=== PATIENT | female | born 1935 | race Caucasian/White ===

== ENCOUNTER 2016-08-31 13:31 | Emergency (ER) | payer MEDICARE, OTHER ==
[~2016-08-31] VITALS: Ht 165.1 cm; Wt 70.3 kg
--- NOTE | 2016-08-31 14:06 | NUR ---
DR COHEN AT THE BEDSIDE FOR EVAL AND EXAM.
[2016-08-31] MEDS ORDERED: DOCU-106 PO (14:31)
[2016-08-31] MEDS ORDERED: ACET325T80 PO (14:31)
[2016-08-31] MEDS ORDERED: MEMA10TA PO (14:31)
[2016-08-31] MEDS ORDERED: MIRT7.5T10 PO (14:31)
[2016-08-31] MEDS ORDERED: DIPH28.44 TP (14:31)
[2016-08-31] MEDS ORDERED: BISA10SU8 RC (14:31)
[2016-08-31] MEDS ORDERED: DIVA125T3 PO (14:31)
[2016-08-31] MEDS ORDERED: DONE10TA4 PO (14:31)
[2016-08-31] MEDS ORDERED: HYDR28CR28 TP (14:31)
[2016-08-31] MEDS ORDERED: ATOR10TA PO (14:31)
[2016-08-31] MEDS ORDERED: MAGN400O4 PO (14:31)
[2016-08-31] MEDS ORDERED: NA P133E4 RC (14:31)
[2016-08-31] MEDS ORDERED: LISI-603 PO (14:31)
--- NOTE | 2016-08-31 15:11 | NUR ---
CALLED EMR FOR TX. PT IS WALKING IN THE ROOM, NO ACUTE DISTRESS NOTED.
--- NOTE | 2016-08-31 15:20 | NUR ---
PT'S SON AT THE BEDSIDE, STATES HE WILL DRIVE PT BACK TO [facility]).
--- NOTE | 2016-08-31 15:41 | NUR ---
Patient discharged in stable conditon. Written and verbal after care instructions given to pt and pt's son. verbalizes understanding of instruction, pt left out of ER accompained by son. EMR called to call transfer.
[2016-08-31 15:44] VITALS: BP 122/76
== END 2016-08-31 15:45 | disposition home or self-care (01) ==
LOC: ER 13:34
DX: S90.812A Abrasion, left foot, initial encounter (principal); E78.00 Pure hypercholesterolemia, unspecified; I10 Essential (primary) hypertension; F03.90 Unspecified dementia, unspecified severity, without behavioral disturbance, psychotic disturbance, mood disturbance, and anxiety; Z88.2 Allergy status to sulfonamides; Z88.8 Allergy status to other drugs, medicaments and biological substances; Z88.0 Allergy status to penicillin; W18.30XA Fall on same level, unspecified, initial encounter; Y93.89 Activity, other specified; Y99.8 Other external cause status; Y92.89 Other specified places as the place of occurrence of the external cause
CPT/HCPCS: 73630; 99284; A4663

== ENCOUNTER 2016-11-25 19:15 | Inpatient (IN) | payer MEDICARE, OTHER ==
[~2016-11-25] VITALS: Ht 157.5 cm; Wt 54.4 kg
[~2016-11-25 19:15] MED LIST: ACET325T80 PO; ATOR10TA PO; BISA10SU8 RC; DIPH28.44 TP; DIVA125T3 PO; DOCU-106 PO; DONE10TA11 PO; HYDR28CR28 TP; LISI-603 PO; MAGN400O6 PO; MEMA10TA PO; MIRT7.5T10 PO; NA P133E4 RC
--- NOTE | 2016-11-25 19:52 | NUR ---
Spoke to [facility] who did not provide a current medication list, will be faxed to this ER.
[2016-11-25] MEDS ORDERED: IV NORMAL SALINE 500 ML BAG IV ONE ×2 (20:00→21:15)
[2016-11-25 20:09] LABS: BASOPHILS # (AUTO) 0.1 K/uL (0.0-8.0); BASOPHILS % (AUTO) 1.1 % (0.0-2.0); EOSINOPHILS # (AUTO) 0.2 K/uL (0.0-0.7); EOSINOPHILS % (AUTO) 2.4 % (0.0-7.0); HEMATOCRIT 41.4 % (37-47); HEMOGLOBIN 13.7 G/DL (12.0-16.0); LYMPHOCYTES # (AUTO) 2.9 K/UL (0.8-4.8); LYMPHOCYTES % (AUTO) 34.4 % (20.5-51.5); MEAN CORPUSCULAR HEMOGLOBIN 31.5 UUG (27.0-31.0); MEAN CORPUSCULAR HGB CONC 33 g/dL (32.0-37.0); MEAN CORPUSCULAR VOLUME 94.9 FL (81.0-99.0); MONOCYTES # (AUTO) 0.6 K/UL (0.1-1.30); NEUTROPHILS # (AUTO) 4.6 K/UL (1.8-8.9); NEUTROPHILS % (AUTO) 55.1 % (38.5-71.5); PLATELET COUNT (AUTO) 202 K/UL (150-450); RED BLOOD CELL COUNT(AUTO) 4.36 MIL/UL (4.2-5.4); WHITE BLOOD COUNT (AUTO) 8.4 K/UL (4.0-11.2)
[2016-11-25 20:16] LABS: CARBON DIOXIDE 33 mmol/L (21-32); CHLORIDE 103 mmol/L (98-107); CREATININE 1.1 mg/dL (0.6-1.3); GLUCOSE 120 mg/dL (74-106); POTASSIUM 3.1 mmol/L (3.5-5.1); UREA NITROGEN, BLOOD 35 mg/dL (7-18)
[2016-11-25 20:22] LABS: ALANINE AMINOTRANSFERASE 16 U/L (14-59); ALKALINE PHOSPHATASE 52 U/L (50-136); ASPARTATE AMINOTRANSFERASE 10 U/L (15-37); BILIRUBIN,DIRECT 0.1 mg/dL (0.0-0.2); BILIRUBIN,TOTAL 0.4 mg/dL (0.2-1.0); LIPASE 191 U/L (73-393)
[2016-11-25] MEDS ORDERED: POTASSIUM CHLORIDE 20 MEQ TAB.PRT.SR PO ONE (21:15)
--- NOTE | 2016-11-25 21:23 | NUR ---
Call placed to [facility] nephrology, Dr. Bryant will be paged.
[2016-11-25] MEDS ORDERED: POTASSIUM CHLORIDE 20 MEQ TAB.PRT.SR ONE (21:45)
--- NOTE | 2016-11-25 21:57 | NUR ---
Daughter in-law left contact information. [place]
--- NOTE | 2016-11-25 22:37 | NUR ---
ADMITTED PATIENT IN TELE UNIT UNDER DR. NICOLAS Gutierres BELONGING LIST DONE.
--- NOTE | 2016-11-25 22:37 | NUR ---
Pt. admitted to TELE, under care of Dr. Bryant Belongs List completed
[2016-11-25 22:40] VITALS: BP 111/54
[2016-11-25] MEDS: POTASSIUM CHLORIDE 20 MEQ in IV D5/ 0.9% NACL 1,000 ML IV PRN (23:53)
[2016-11-26] VITALS: BP 103/52
[2016-11-26 04:00] VITALS: BP 100/65
--- NOTE | 2016-11-26 05:49 | NUR ---
PATIENT SLEPT MOST OF THE NIGHT NO SOB NO CHEST PAIN, RYTHM IS SINUS BRADYCARDIA, NO COMPLAIN OF PAIN, KEPT CLEAN DRY AND COMFORTABLE, CONT TO MONITOR.
[2016-11-26] MEDS ORDERED: HYDROCORTISONE 1% CREAM 30 GM TUBE TP PRN (08:00)
[2016-11-26] MEDS ORDERED: ACETAMINOPHEN 325 MG TABLET PO PRN (08:00)
[2016-11-26] MEDS ORDERED: BISACODYL 10 MG SUPP.RECT RC PRN (08:00)
[2016-11-26] MEDS ORDERED: FLEET ENEMA 133 ML BOTTLE RC PRN (08:00)
[2016-11-26] MEDS ORDERED: MAGNESIUM HYDROXIDE 30 ML LIQUID UDC PO PRN (08:00)
[2016-11-26] MEDS ORDERED: diphenhydrAMINE/ZINC ACET CREAM 28 GM TUBE TP PRN (08:00)
[2016-11-26] MEDS ORDERED: DIVALPROEX 125 MG TABLET.DR PO SCH (09:00)
[2016-11-26] MEDS: DOCUSATE SODIUM 100 MG CAPSULE PO SCH (09:10)
[2016-11-26] MEDS: MEMANTINE HCL 10 MG TABLET PO SCH ×2 (09:10→16:40)
[2016-11-26] MEDS: DIVALPROEX 250 MG TABLET.DR PO SCH ×2 (09:10→16:40)
[2016-11-26] MEDS: LISINOPRIL 20 MG TABLET PO SCH (09:11)
[2016-11-26 09:30] LABS: BASOPHILS % (AUTO) 0.7 % (0.0-2.0); EOSINOPHILS # (AUTO) 0.3 K/uL (0.0-0.7); EOSINOPHILS % (AUTO) 4.3 % (0.0-7.0); HEMOGLOBIN 11.9 G/DL (12.0-16.0); LYMPHOCYTES # (AUTO) 2.8 K/UL (0.8-4.8); MEAN CORPUSCULAR HEMOGLOBIN 31.4 UUG (27.0-31.0); MEAN CORPUSCULAR HGB CONC 33 g/dL (32.0-37.0); MEAN CORPUSCULAR VOLUME 96.5 FL (81.0-99.0); MONOCYTES # (AUTO) 0.5 K/UL (0.1-1.30); MONOCYTES % (AUTO) 7.7 % (0.0-11.0); NEUTROPHILS # (AUTO) 2.7 K/UL (1.8-8.9); NEUTROPHILS % (AUTO) 43.3 % (38.5-71.5); PLATELET COUNT (AUTO) 169 K/UL (150-450); WHITE BLOOD COUNT (AUTO) 6.3 K/UL (4.0-11.2)
[2016-11-26 09:36] LABS: CARBON DIOXIDE 27 mmol/L (21-32); CHLORIDE 111 mmol/L (98-107); CREATININE 0.7 mg/dL (0.6-1.3); GLUCOSE 118 mg/dL (74-106); POTASSIUM 4.3 mmol/L (3.5-5.1); UREA NITROGEN, BLOOD 31 mg/dL (7-18)
[2016-11-26 09:47] LABS: HEMATOCRIT 36.4 % (37-47); RED BLOOD CELL COUNT(AUTO) 3.77 MIL/UL (4.2-5.4)
[2016-11-26 11:07] VITALS: BP 129/63
--- NOTE | 2016-11-26 13:09 | NUR ---
PATIENT SEEN AND EXAMINED BY DR RONALDO HINOJOSA WITH NEW ORDERS AND NOTED.ALERT TO SELF RESPONDS TO YES OR NO WHEN ENGAGED.UNABLE TO MAKE NEEDS KNOWN.REQUIRES MAX ASSIST FOR ALL ADL.REMAIN ON IVF ORDERED WITH IV BOARD IN PLACE TO HER RIGHT ARM TO SECURE THE SITE AND PREVENT FROM BEEPING.MADE COMFORTABLE WITH NO DISTRESS AT THIS TIME.
[2016-11-26] MEDS: MEGESTROL ACETATE 20 MG TABLET PO SCH ×2 (13:39→16:40)
[2016-11-26] MEDS: POTASSIUM CHLORIDE 20 MEQ in IV D5/ 0.9% NACL 1,000 ML IV PRN (15:02)
[2016-11-26 15:15] VITALS: BP 125/66
--- NOTE | 2016-11-26 17:00 | NUR ---
PATIENT IS MORE CONFUSED DISORIENTED SUN DOWNING SPIT OUT ALL HER MEDICATIONS UNABLE TO REDIRECT MADE COMFORTABLE.
--- NOTE | 2016-11-26 18:00 | NUR ---
CONTINUE TO BE CONFUSED DISORIENTED ATTEMPTS TO GET OUT OF BED REPOSITIONED MANY TIMES MADE COMFORTABLE ENDORSED.
--- NOTE | 2016-11-26 19:00 | NUR ---
RECEIVED PATIENT WITH RESTLESSNESS, ASSESSED FOR PAIN AND DISCOMFORT, ASSISTED PATIENT TO RESTROOM, URINATE MODERATE AMOUNT OF URINE, KEPT CLEAN AND DRY, NO SOB NO CHEST PAIN NOTED, NO COMPLAIN OF PAIN AT THIS TIME, CALL LIGHT WITHIN REACH.
[2016-11-26 19:55] VITALS: BP 153/73
[2016-11-26] MEDS: ATORVASTATIN 10 MG TABLET PO SCH (20:19)
[2016-11-26] MEDS: DONEPEZIL 10 MG TABLET PO SCH (20:19)
[2016-11-26] MEDS: MIRTAZAPINE 15 MG TABLET PO SCH (20:19)
[2016-11-26] MEDS: Z GUARD REMEDY PASTE 57 GM TUBE TOP SCH (20:20)
--- NOTE | 2016-11-26 21:00 | NUR ---
GIVEN PATIENT 2100 MEDICATIONS WITH HELP WITH THE RESTLESSNESS, PATIENT WENT TO SLEEP, KEPT CLEAN AND DRY, CALL LIGHT WITHIN REACH.
[2016-11-27] MEDS: POTASSIUM CHLORIDE 20 MEQ in IV D5/ 0.9% NACL 1,000 ML IV PRN ×2 (04:05→17:37)
[2016-11-27 04:13] VITALS: BP 119/97
--- NOTE | 2016-11-27 05:50 | NUR ---
PATIENT SLEPT MOST OF THE NIGHT, NO SOB NO CHEST PAIN, ASSISTED TO BATHROOM FOR BLADDER ELIMINATION, RENDERED MARILIN CARE, PATIENT HAS EPISODES OF CLIMB OOB, RISK FOR FALL, FREQUENT VISUAL CHECK DONE, BED ALARM WAS PUT ON. CONT TO MONITOR.
[2016-11-27] MEDS: MEGESTROL ACETATE 20 MG TABLET PO SCH ×2 (09:14→17:35)
[2016-11-27] MEDS: MEMANTINE HCL 10 MG TABLET PO SCH ×2 (09:14→17:35)
[2016-11-27] MEDS: DIVALPROEX 250 MG TABLET.DR PO SCH ×2 (09:15→17:35)
[2016-11-27] MEDS: DOCUSATE SODIUM 100 MG CAPSULE PO SCH (09:15)
[2016-11-27] MEDS: Z GUARD REMEDY PASTE 57 GM TUBE TOP SCH (09:16)
[2016-11-27] MEDS: LISINOPRIL 20 MG TABLET PO SCH (09:16)
[2016-11-27 11:42] VITALS: BP 140/65
[2016-11-27 16:10] VITALS: BP 134/99
--- NOTE | 2016-11-27 18:54 | NUR ---
PER OSITO DUST COLLECTOR ATTENDANT "PT HAS NRSA OF [facility]", ADVICED NURSE LAB REP TO BRING THE CART FOR CONTACT ISOLATION
--- NOTE | 2016-11-27 19:00 | NUR ---
RECEIVED IN BED NO SOB NO CHEST PAIN, ASSISTED WITH TOILETING, KEPT CLEAN AND DRY, CALL LIGHT WITHIN REACH.
--- NOTE | 2016-11-27 19:07 | NUR ---
PT IS LAYING IN BED COMFORTABLY. NO S/S OF RESPIRATORY DISTRESS NOTED. NO PAIN NOTED. ALL SAFETY NEEDS ARE MET. IV INTACT/PATENT.
[2016-11-27 19:38] VITALS: BP 150/82
[2016-11-27] MEDS: MIRTAZAPINE 15 MG TABLET PO SCH (20:21)
[2016-11-27] MEDS: DONEPEZIL 10 MG TABLET PO SCH (20:23)
[2016-11-27] MEDS: ATORVASTATIN 10 MG TABLET PO SCH (20:23)
[2016-11-27] MEDS: MUPIROCIN 2% OINT 22 GM TUBE NS SCH (22:00)
[2016-11-28] MEDS: Z GUARD REMEDY PASTE 57 GM TUBE TOP SCH ×3 (02:01→20:13)
--- NOTE | 2016-11-28 05:01 | NUR ---
PATIENT SLEPT MOST OF THE NIGHT, NO SOB NO CHEST PAIN, ASSISTED TO COMMODE FOR BLADDER ELIMINATION, PATIENT PULLED OUT HER IV, WILL REINSERT IV, CONT TO MONITOR.
[2016-11-28 05:16] VITALS: BP 135/86
[2016-11-28] MEDS: MUPIROCIN 2% OINT 22 GM TUBE NS SCH ×2 (10:46→20:02)
[2016-11-28] MEDS: MEGESTROL ACETATE 20 MG TABLET PO SCH ×2 (10:46→17:00)
[2016-11-28] MEDS: DIVALPROEX 250 MG TABLET.DR PO SCH ×2 (10:46→17:00)
[2016-11-28] MEDS: DOCUSATE SODIUM 100 MG CAPSULE PO SCH (10:46)
[2016-11-28] MEDS: LISINOPRIL 20 MG TABLET PO SCH (10:47)
[2016-11-28] MEDS: MEMANTINE HCL 10 MG TABLET PO SCH ×2 (10:47→17:00)
[2016-11-28 11:42] VITALS: BP 145/77
[2016-11-28 15:51] VITALS: BP 118/79
--- NOTE | 2016-11-28 19:00 | NUR ---
RECEIVED IN BED, AWAKE, VERBALLY RESPONSIVE, NO SOB NO CHEST PAIN, NOTED, KEPT CLEAN AND DRY. NO S/S OF DISTRESS.
[2016-11-28] MEDS: DONEPEZIL 10 MG TABLET PO SCH (20:02)
[2016-11-28] MEDS: MIRTAZAPINE 15 MG TABLET PO SCH (20:02)
[2016-11-28] MEDS: ATORVASTATIN 10 MG TABLET PO SCH (20:02)
[2016-11-28 20:39] VITALS: BP 147/71
[2016-11-29] MEDS: POTASSIUM CHLORIDE 20 MEQ in IV D5/ 0.9% NACL 1,000 ML IV PRN ×2 (01:19→08:57)
[2016-11-29 04:00] VITALS: BP 121/84
--- NOTE | 2016-11-29 05:00 | NUR ---
PATIENT SLEPT MOST OF THE NIGHT, NO SOB NO CHEST PAIN NOTED, ASSISTED TO COMMODE FOR BLADDER ELIMINATION, NO COMPLAIN OF PAIN AT THIS TIME. KEPT CLEAN AND DRY.
[2016-11-29 06:46] LABS: THYROID STIMULATING HORMONE 1.695 mIU/mL (0.358-3.740)
[2016-11-29 06:52] LABS: BASOPHILS % (AUTO) 0.6 % (0.0-2.0); EOSINOPHILS # (AUTO) 0.2 K/uL (0.0-0.7); EOSINOPHILS % (AUTO) 3.6 % (0.0-7.0); HEMATOCRIT 36.3 % (37-47); HEMOGLOBIN 12.2 G/DL (12.0-16.0); LYMPHOCYTES % (AUTO) 49.9 % (20.5-51.5); MEAN CORPUSCULAR HEMOGLOBIN 31.6 UUG (27.0-31.0); MEAN CORPUSCULAR HGB CONC 34 g/dL (32.0-37.0); MEAN CORPUSCULAR VOLUME 94.5 FL (81.0-99.0); MONOCYTES # (AUTO) 0.4 K/UL (0.1-1.30); MONOCYTES % (AUTO) 7.3 % (0.0-11.0); NEUTROPHILS # (AUTO) 2.3 K/UL (1.8-8.9); NEUTROPHILS % (AUTO) 38.6 % (38.5-71.5); PLATELET COUNT (AUTO) 175 K/UL (150-450); RED BLOOD CELL COUNT(AUTO) 3.85 MIL/UL (4.2-5.4); WHITE BLOOD COUNT (AUTO) 5.9 K/UL (4.0-11.2)
[2016-11-29 06:54] LABS: ALANINE AMINOTRANSFERASE 15 U/L (14-59); ALKALINE PHOSPHATASE 50 U/L (50-136); ASPARTATE AMINOTRANSFERASE 14 U/L (15-37); BILIRUBIN,TOTAL 0.4 mg/dL (0.2-1.0); CARBON DIOXIDE 28 mmol/L (21-32); CHLORIDE 109 mmol/L (98-107); CREATININE 0.6 mg/dL (0.6-1.3); GLUCOSE 94 mg/dL (74-106); MAGNESIUM 1.8 mg/dL (1.8-2.4); PHOSPHOROUS 3.3 mg/dL (2.5-4.9); POTASSIUM 3.6 mmol/L (3.5-5.1); UREA NITROGEN, BLOOD 4 mg/dL (7-18)
--- NOTE | 2016-11-29 07:59 | NUR ---
Sleeping. IVF infusing. Bed alarm on
[2016-11-29] MEDS: DIVALPROEX 250 MG TABLET.DR PO SCH (08:34)
[2016-11-29] MEDS: MEGESTROL ACETATE 20 MG TABLET PO SCH (08:34)
[2016-11-29] MEDS: DOCUSATE SODIUM 100 MG CAPSULE PO SCH (08:34)
[2016-11-29] MEDS: MEMANTINE HCL 10 MG TABLET PO SCH (08:34)
[2016-11-29] MEDS: MUPIROCIN 2% OINT 22 GM TUBE NS SCH (08:34)
[2016-11-29] MEDS: LISINOPRIL 20 MG TABLET PO SCH (08:35)
[2016-11-29] MEDS: Z GUARD REMEDY PASTE 57 GM TUBE TOP SCH (08:35)
[2016-11-29 08:36] VITALS: BP 139/76
--- NOTE | 2016-11-29 09:00 | NUR ---
Assisted with meal, only ate small bites of meal but drank milk. Complaint with taking medications.
[2016-11-29 11:35] VITALS: BP 108/96
[2016-11-29] MEDS ORDERED: BOOST PLUS 237 ML LIQUID (VERY VANILLA) PO SCH (12:00)
--- NOTE | 2016-11-29 12:30 | NUR ---
Family at bedside, assisted with meals but still with poor intake. Boost Plus added to meal
--- NOTE | 2016-11-29 13:30 | NUR ---
With BM, got out of bed. Assisted to commode then back to bed. Bed alarm on
[2016-11-29 15:39] VITALS: BP 116/52
[2016-11-29] MEDS ORDERED: MUPI22OI2 NS (15:39)
[2016-11-29] MEDS ORDERED: MENT71OI TOP (15:39)
[2016-11-29] MEDS ORDERED: LACT-15 PO (15:39)
[2016-11-29] MEDS ORDERED: MEGE20TA5 PO (15:39)
--- NOTE | 2016-11-29 16:18 | NUR ---
With discharge order to ARU. Saline lock removed. Daughter and son informed, left messages. Report given to Norris. Discharged per wheelchair in fair condition, not in distress, afebrile.
[2016-11-29] MEDS ORDERED: POTA20IV IV (16:57)
[2016-11-30 06:07] LABS: VIT D, 25-HYDROXY 15.3 ng/mL (30.0-100.0)
== END 2016-11-29 16:15 | DRG 641 ==
LOC: ER 19:16 → TELE 22:18 → MED 11-26 16:30
PROVIDERS: ADMIT Internal Medicine Nephrology; ATTEND Internal Medicine Nephrology
DX: E86.0 Dehydration (principal); F03.90 Unspecified dementia, unspecified severity, without behavioral disturbance, psychotic disturbance, mood disturbance, and anxiety; R53.1 Weakness; I10 Essential (primary) hypertension; E87.6 Hypokalemia; Z79.899 Other long term (current) drug therapy; K59.00 Constipation, unspecified; E78.00 Pure hypercholesterolemia, unspecified; Z88.0 Allergy status to penicillin; Z88.2 Allergy status to sulfonamides; Z88.8 Allergy status to other drugs, medicaments and biological substances
CPT/HCPCS: 36415; 71010; 80164; 82306; 82747; 83690; 83735; 84100; 84443; 85014; 85025; 86592; A4663; J3480; J3490; J7040; J7042

== ENCOUNTER 2016-11-29 16:14 | Inpatient (IN) | payer MEDICARE, OTHER ==
[~2016-11-29] VITALS: Ht 157.5 cm; Wt 33.1 kg
[~2016-11-29 16:14] MED LIST changes: +LACT-15 PO; +MEGE20TA5 PO; +MENT71OI TOP; +MUPI22OI2 NS
[2016-11-29 16:30] VITALS: BP 131/73
[2016-11-29] MEDS ORDERED: Z GUARD REMEDY PASTE 57 GM TUBE TOP PRN (16:45)
[2016-11-29] MEDS ORDERED: POTA20IV IV (16:57)
[2016-11-29] MEDS ORDERED: diphenhydrAMINE/ZINC ACET CREAM 28 GM TUBE TP PRN (17:15)
[2016-11-29] MEDS ORDERED: FLEET ENEMA 133 ML BOTTLE RC PRN (17:15)
[2016-11-29] MEDS ORDERED: HYDROCORTISONE 1% CREAM 30 GM TUBE TP PRN (17:15)
[2016-11-29] MEDS ORDERED: BISACODYL 10 MG SUPP.RECT RC PRN (17:15)
[2016-11-29] MEDS ORDERED: MAGNESIUM HYDROXIDE 30 ML LIQUID UDC PO PRN (17:15)
[2016-11-29] MEDS ORDERED: ACETAMINOPHEN 325 MG TABLET PO PRN (17:15)
--- NOTE | 2016-11-29 19:02 | NUR ---
pt admitted at 1700 from [facility] second floor. pt came in with a gurney. pt appears stable on arrival. report received from makenna. physical assessment done on arrival. pt appears confused and has a hard time answering questions. pt has stage 1 sacral wound on assessment. pt is only oriented to name. pt cannot state time or know her location. all pertinent rehab admission protocls done. mrsa done. all belongings and meds reconciled. fall precautions ordered. pt is positive for mrsa nares on [facility]. care plan initiated. will endorse new orders to night coordinator nurse.
--- NOTE | 2016-11-29 19:28 | NUR ---
Received report from off going nurse. Patient in bed sleeping. Respirations unlabored. No signs of distress or discomfort. No pain noted. Patient is on contact isolation for MRSA. Bed in lowest position with 3/4 side rails up,and bed alarm active for safety. Call light within reach. Will continue to monitor
[2016-11-29] MEDS: DONEPEZIL 10 MG TABLET PO SCH (20:23)
[2016-11-29] MEDS: MIRTAZAPINE 15 MG TABLET PO SCH (20:23)
[2016-11-29] MEDS: ATORVASTATIN 10 MG TABLET PO SCH (20:23)
[2016-11-29 20:24] VITALS: BP 116/65
[2016-11-29] MEDS: Z GUARD REMEDY PASTE 57 GM TUBE TOP SCH (20:41)
[2016-11-29] MEDS: MUPIROCIN 2% OINT 22 GM TUBE NS SCH (20:42)
[2016-11-30] MEDS: DIVALPROEX 125 MG TABLET.DR PO SCH ×2 (08:26→16:12)
[2016-11-30] MEDS: LISINOPRIL 20 MG TABLET PO SCH (08:26)
[2016-11-30] MEDS: DOCUSATE SODIUM 100 MG CAPSULE PO SCH (08:26)
[2016-11-30] MEDS: MEMANTINE HCL 10 MG TABLET PO SCH ×2 (08:26→16:12)
[2016-11-30] MEDS: MEGESTROL ACETATE 20 MG TABLET PO SCH ×2 (08:27→16:11)
[2016-11-30] MEDS: MUPIROCIN 2% OINT 22 GM TUBE NS SCH ×2 (08:34→20:58)
[2016-11-30] MEDS: Z GUARD REMEDY PASTE 57 GM TUBE TOP SCH ×2 (08:35→20:52)
[2016-11-30] MEDS: BOOST PLUS 237 ML LIQUID (VERY VANILLA) PO SCH ×3 (08:35→17:00)
[2016-11-30 09:03] LABS: BASOPHILS # (AUTO) 0.1 K/uL (0.0-8.0); EOSINOPHILS # (AUTO) 0.2 K/uL (0.0-0.7); EOSINOPHILS % (AUTO) 3.2 % (0.0-7.0); HEMATOCRIT 37.5 % (37-47); HEMOGLOBIN 12.6 G/DL (12.0-16.0); LYMPHOCYTES # (AUTO) 2.7 K/UL (0.8-4.8); LYMPHOCYTES % (AUTO) 49.9 % (20.5-51.5); MEAN CORPUSCULAR HEMOGLOBIN 31.6 UUG (27.0-31.0); MEAN CORPUSCULAR HGB CONC 34 g/dL (32.0-37.0); MONOCYTES # (AUTO) 0.5 K/UL (0.1-1.30); NEUTROPHILS # (AUTO) 2.1 K/UL (1.8-8.9); NEUTROPHILS % (AUTO) 36.9 % (38.5-71.5); PLATELET COUNT (AUTO) 189 K/UL (150-450); RED BLOOD CELL COUNT(AUTO) 3.99 MIL/UL (4.2-5.4); WHITE BLOOD COUNT (AUTO) 5.6 K/UL (4.0-11.2)
[2016-11-30 09:05] VITALS: BP 112/56
[2016-11-30 09:28] LABS: CARBON DIOXIDE 26 mmol/L (21-32); CHLORIDE 107 mmol/L (98-107); CHOLESTEROL 120 mg/dL (<200); CREATININE 0.8 mg/dL (0.6-1.3); GLUCOSE 79 mg/dL (74-106); HDL CHOLESTEROL 37 mg/dL (40-60); MAGNESIUM 1.8 mg/dL (1.8-2.4); PHOSPHOROUS 3.8 mg/dL (2.5-4.9); POTASSIUM 3.7 mmol/L (3.5-5.1); TRIGLYCERIDES 95 MG/DL (30-150); UREA NITROGEN, BLOOD 6 mg/dL (7-18)
--- NOTE | 2016-11-30 14:54 | NUR ---
REHAB TEAM CONFERENCE 11/30/16
--- NOTE | 2016-11-30 18:18 | NUR ---
pt continues to be confused during shift. continous reorientation and encouragement to eal meals done during shift. turing and reposition done to prevent development of sacral ulcer stage 1. pt continues to refuse to eat even with megace prescribed. neurology consult ordered by dr burnett. pt took pills whole. pt provided comfort measures and was instructed to use the call light to transfer to commode. bed light on because pt overestimates abilities. pt given boost to increase nutritional intake. pt also refused. comfort measures provided. no signs of acute distress. well endorse orders to normalizer nurse.
[2016-11-30 20:25] VITALS: BP 111/51
[2016-11-30] MEDS: DONEPEZIL 10 MG TABLET PO SCH (20:51)
[2016-11-30] MEDS: ATORVASTATIN 10 MG TABLET PO SCH (20:51)
[2016-11-30] MEDS: MIRTAZAPINE 15 MG TABLET PO SCH (20:51)
--- NOTE | 2016-11-30 22:00 | NUR ---
Pt appears withdrawn, needs encouragement to participate with care. Denies pain/discomfort. Needed coaching and encouragements to take HS meds. Refused HS snacks. Safety measures/fall precautions observed at all times. Nursing comfort measures maintained at all times.
--- NOTE | 2016-12-01 06:00 | NUR ---
Slept most of the night. Stable, comfortable night. In no apparent acute distress.
--- NOTE | 2016-12-01 07:10 | NUR ---
Received pt in bed, sleeping, no distress noted. Bed kept low/locked position, Call light and personal belongings within reach.
[2016-12-01] MEDS: BOOST GLUCOSE CONTROL 237 ML LIQUID (CHOCOLATE) PO SCH ×2 (08:30→17:57)
[2016-12-01 08:43] VITALS: BP 106/51
--- NOTE | 2016-12-01 08:45 | NUR ---
Pt was seen by Dr. Parson for neuro evaluation, Stat CT scan of the head was order, urine for U/A.
--- NOTE | 2016-12-01 09:00 | NUR ---
Pt was taken for CT head without contrast.
--- NOTE | 2016-12-01 09:15 | NUR ---
Pt back from CT scan. No distress noted.
[2016-12-01] MEDS: DIVALPROEX 125 MG TABLET.DR PO SCH ×2 (09:43→17:56)
[2016-12-01] MEDS: MEMANTINE HCL 10 MG TABLET PO SCH ×2 (09:43→17:56)
[2016-12-01] MEDS: DOCUSATE SODIUM 100 MG CAPSULE PO SCH (09:43)
[2016-12-01] MEDS: LISINOPRIL 20 MG TABLET PO SCH (09:43)
[2016-12-01] MEDS: MEGESTROL ACETATE 20 MG TABLET PO SCH ×2 (09:44→17:56)
[2016-12-01] MEDS: MUPIROCIN 2% OINT 22 GM TUBE NS SCH ×2 (09:50→20:26)
[2016-12-01] MEDS: Z GUARD REMEDY PASTE 57 GM TUBE TOP SCH ×2 (09:51→20:29)
--- NOTE | 2016-12-01 11:30 | NUR ---
Urine sample collected and send for u/a as order by dr. Parson.
[2016-12-01 11:32] LABS: THYROID STIMULATING HORMONE 0.628 mIU/mL (0.358-3.740)
[2016-12-01 12:25] LABS: *BLOOD, URINE NEGATIVE (NEGATIVE); *CLARITY,URINE TURBID (CLEAR); *COLOR,URINE YELLOW (YELLOW); *KETONES,URINE 2+ (NEGATIVE); *PROTEIN,URINE 1+ (NEGATIVE); *UROBILINOGEN,URINE 0.2 E.U./dl (NORMAL); LEUKOCYTE ESTERASE ,URINE 1+ (NEGATIVE); NITRITE, URINE NEGATIVE (NEGATIVE); UGLUCOSE NEGATIVE (NEGATIVE)
[2016-12-01 12:30] LABS: *BILIRUBIN,URIN 1+ (NEGATIVE)
--- NOTE | 2016-12-01 12:30 | NUR ---
Received results for positive bili on urine sample. Message left for dr. burnett.
[2016-12-01 12:48] LABS: BACTERIA,URINE MODERATE /HPF (NONE SEEN); RBC,URINE 0-3 /HPF (0-3); SQUAMOUS EPITHELIAL CELL,UR FEW /HPF (NONE SEEN)
--- NOTE | 2016-12-01 15:37 | NUR ---
[employer]: SW met with pt at bedside to assess needs and provide support. Pt is an 81-year-old female admitted to ARU for debility. Per chart, the pt has a variety comorbidities including HTN, dementia, seizure, and parkinson's disease. Additionally, the pt came in with an altered mental status, functional decline, and impaired mobility. The pt was seen by neuro who reported she is a poor historian with dementia. Pt resides at an [facility] and will be returning there once discharged. Psych: Pt is only alert and oriented to person, and presented in a calm mood. She appeared confused, disoriented, and disorganized. She presented with a guarded affect and was unable to provide reliable information. As mentioned previously the pt is a poor historian and suffers from dementia. Pt reported to have no family and/or use any DME. However, per chart she has one son and one daughter, and uses DME's at her facility. SW will follow-up with pt's family to confirm if pt has a mental health provider for dementia, or will need referrals upon discharge. Social: Pt lives an and [facility], and has one son and one daughter. Per chart, the pt's son- Ede is her DPOA. SW will speak with pt's family to obtain further hx. There is no substance abuse reported. Goals: Pt was unable to express a goal. SS Needs: SW will provide pt with supportive counseling and emotional support. SW will address issues of loss related to hospitalization. SW will provide support to family during hospitalization. SW will provide outpatient referrals for dementia care. SW will provide linkage to case management (home health).
--- NOTE | 2016-12-01 18:37 | NUR ---
Pt remains with poor appetite, ate half of banana for breakfast, she refused lunch. Pt refused Boost supplement this morning, but had 50% of the boost for dinner. Family was in for visit this evening, updated on patient condition, were made aware of State CT scan that was order. Pt remain sleeping for most of the day. Frequent rounds made to encouraged fluid intake. Pt was awake, talking to family during visit.
[2016-12-01 19:51] VITALS: BP 118/62
[2016-12-01] MEDS: DONEPEZIL 10 MG TABLET PO SCH (20:27)
[2016-12-01] MEDS: MIRTAZAPINE 15 MG TABLET PO SCH (20:27)
[2016-12-01] MEDS: ATORVASTATIN 10 MG TABLET PO SCH (20:27)
--- NOTE | 2016-12-01 20:51 | NUR ---
Received patient awake, verbally responsive & pleasantly confused. No SOB noted, denies chest pain. RTurned & repositioned in bed. Routine night meds given, patient tolerated crushed meds w/ vanilla ice cream. Noted no BM for 3 nights, Dulcolax 10mg suppository given. Discussed about current care plan but needs further instructions due to forgetfulness. Fall precaution observed, kept bed alarm on at all times.
--- NOTE | 2016-12-01 22:30 | NUR ---
Noted slow ability to drink water, patient stated throat discomfort. Instructed to open mouth widely for further throat assessment but patient refused. Will address current condition in AM.
--- NOTE | 2016-12-02 06:29 | NUR ---
No BM as of this time. Patient slept well.
[2016-12-02 08:00] VITALS: BP 104/57
[2016-12-02] MEDS: BOOST GLUCOSE CONTROL 237 ML LIQUID (CHOCOLATE) PO SCH ×2 (08:00→17:40)
[2016-12-02] MEDS: DIVALPROEX 125 MG TABLET.DR PO SCH ×2 (09:20→17:39)
[2016-12-02] MEDS: MEGESTROL ACETATE 20 MG TABLET PO SCH ×2 (09:21→17:00)
[2016-12-02] MEDS: LISINOPRIL 20 MG TABLET PO SCH (09:22)
[2016-12-02] MEDS: MUPIROCIN 2% OINT 22 GM TUBE NS SCH ×2 (09:23→20:34)
[2016-12-02] MEDS: Z GUARD REMEDY PASTE 57 GM TUBE TOP SCH ×2 (09:24→20:35)
[2016-12-02] MEDS: MEMANTINE HCL 10 MG TABLET PO SCH ×2 (09:24→17:40)
--- NOTE | 2016-12-02 09:34 | NUR ---
Assisted attending RN with medication passing, as attending RN has no current access for [employer]. IT department called and notified, and currently working on access for attending RN, meanwhile scanned patient's wristband, scanned medication, and observed attending RN give medications to patient. All medication checks made, no acute instances with patient. economic development director notified of [employer] inaccess for attending RN.
[2016-12-02] MEDS: DOCUSATE SODIUM 100 MG CAPSULE PO SCH (11:36)
--- NOTE | 2016-12-02 18:09 | NUR ---
PT. OOB WITH 1-2 PERS ASSIST USING WALKER. SITTING UP FOR LUNCH. ENCOURAGED AND ASSISTED WITH MEALS. FAIR INTAKE. ASSISTED TO BR WITH 1 PERS ASSIST AND WAS ABLE TO VOID ONE TIME IN THE AFTERNOON. CONTINUE TO MONITOR. FAMILY AT BS EARLY AFTERNOON. REORIENTED FREQUENTLY, CALM AND COOPERATIVE. TOOK MEDS CRUSHED WITH VANILLA PUDDING.
--- NOTE | 2016-12-02 19:00 | NUR ---
RECEIVED PATIENT IN BED, NO SOB NO CHEST PAIN , ASSISTED TO TOILET FOR BLADDER ELIMINATION, ASSISTED WITH GOOD MARILIN CARE, CALL LIGHT WITHIN REACH.
[2016-12-02 19:47] VITALS: BP 93/72
[2016-12-02] MEDS: DONEPEZIL 10 MG TABLET PO SCH (20:27)
[2016-12-02] MEDS: MIRTAZAPINE 15 MG TABLET PO SCH (20:28)
[2016-12-02] MEDS: ATORVASTATIN 10 MG TABLET PO SCH (20:28)
--- NOTE | 2016-12-03 06:17 | NUR ---
PATIENT SLEPT MOST OF THE NIGHT, ASSISTED WITH TOILETING, PATIENT VOIDED TWICE IN THIS SHIFT, KEPT CLEAN AND DRY.
--- NOTE | 2016-12-03 07:30 | NUR ---
on bed, resting comfortably. assisted oob for breakfast, tolerated well.
[2016-12-03 08:00] VITALS: BP 103/51
[2016-12-03] MEDS: BOOST GLUCOSE CONTROL 237 ML LIQUID (CHOCOLATE) PO SCH ×2 (08:52→16:59)
[2016-12-03] MEDS: LISINOPRIL 20 MG TABLET PO SCH (09:00)
--- NOTE | 2016-12-03 09:00 | NUR ---
family at bedside, supportive of patient care. isolation protocol as ordered. patient and family glad of improvement.
[2016-12-03] MEDS: MEMANTINE HCL 10 MG TABLET PO SCH ×2 (09:07→16:59)
[2016-12-03] MEDS: DOCUSATE SODIUM 100 MG CAPSULE PO SCH (09:07)
[2016-12-03] MEDS: DIVALPROEX 125 MG TABLET.DR PO SCH ×2 (09:08→16:59)
[2016-12-03] MEDS: Z GUARD REMEDY PASTE 57 GM TUBE TOP SCH ×2 (09:10→21:07)
[2016-12-03] MEDS: MUPIROCIN 2% OINT 22 GM TUBE NS SCH ×2 (09:10→21:09)
[2016-12-03] MEDS: MEGESTROL ACETATE 20 MG TABLET PO SCH ×2 (09:16→16:59)
--- NOTE | 2016-12-03 13:00 | NUR ---
returned to bed as requested. resting well.
--- NOTE | 2016-12-03 15:00 | NUR ---
turned q 2 hours. taking fluids liberally, needed to be encourage to drink and eat more.
--- NOTE | 2016-12-03 18:45 | NUR ---
resting well. comfortable
[2016-12-03 19:48] VITALS: BP 109/56
--- NOTE | 2016-12-03 20:00 | NUR ---
Received pt on bed, awake and alert. No acute distress noted. No c/o pain. Breathing even and unlabored with normal respirations. Calm and cooperative to care. Vital signs stable. Contact precautions observed. Kept clean, dry and comfortable. Call light within reach. All needs attended. Will continue to monitor.
[2016-12-03] MEDS: ATORVASTATIN 10 MG TABLET PO SCH (21:06)
[2016-12-03] MEDS: MIRTAZAPINE 15 MG TABLET PO SCH (21:06)
[2016-12-03] MEDS: DONEPEZIL 10 MG TABLET PO SCH (21:07)
--- NOTE | 2016-12-04 03:05 | NUR ---
Patient asleep during this time. No complaints of pain or discomfort. Call light within reach. Will continue to monitor.
--- NOTE | 2016-12-04 06:34 | NUR ---
Patient slept well throughout the shift. No complaints of pain. Contact precaution observed. Assisted to the bathroom, tolerated well. Kept clean, dry and comfortable. All needs attended. Will continue to monitor.
[2016-12-04 07:21] VITALS: BP 114/62
[2016-12-04] MEDS: BOOST GLUCOSE CONTROL 237 ML LIQUID (CHOCOLATE) PO SCH ×2 (08:00→17:17)
--- NOTE | 2016-12-04 08:00 | NUR ---
Received patient asleep, non-labored breathing. Call light within reach.
--- NOTE | 2016-12-04 09:00 | NUR ---
Patient was able to take medications as prescribed, crushed medications. Still with poor appetite, continued to offer fluids and snacks.
[2016-12-04] MEDS: DIVALPROEX SPRINKLE 125 MG CAP.SPRINK PO SCH ×2 (09:31→17:16)
[2016-12-04] MEDS: Z GUARD REMEDY PASTE 57 GM TUBE TOP SCH ×2 (09:31→21:09)
[2016-12-04] MEDS: MEGESTROL ACETATE 20 MG TABLET PO SCH ×2 (09:31→17:17)
[2016-12-04] MEDS: MUPIROCIN 2% OINT 22 GM TUBE NS SCH ×2 (09:31→21:09)
[2016-12-04] MEDS: MEMANTINE HCL 10 MG TABLET PO SCH ×2 (09:32→17:17)
[2016-12-04] MEDS: LISINOPRIL 20 MG TABLET PO SCH (09:32)
[2016-12-04] MEDS: DOCUSATE SODIUM 100 MG CAPSULE PO SCH (09:34)
--- NOTE | 2016-12-04 10:51 | NUR ---
Patient sitting at bed, flat affect and withdrawn. Conversant and oriented so self.
--- NOTE | 2016-12-04 19:30 | NUR ---
Received patient laying in bed. No acute distress noted. No SOB. No c/o pain and discomfort. No facial grimacing. Remains on contact isolation for MRSA nares. Contact precautions taken by staff. Kept clean and dry. All needs attended to promptly. Call light within reach. Will continue to monitor.
[2016-12-04 20:26] VITALS: BP 91/52
--- NOTE | 2016-12-04 21:00 | NUR ---
Patient tolerated 9pm medications. Fluids encouraged. Aspirations precautions taken. All needs attended to promptly. Call light within reach. Bed in low position. Will continue to monitor.
[2016-12-04] MEDS: DONEPEZIL 10 MG TABLET PO SCH (21:01)
[2016-12-04] MEDS: ATORVASTATIN 10 MG TABLET PO SCH (21:01)
[2016-12-04] MEDS: MIRTAZAPINE 15 MG TABLET PO SCH (21:02)
--- NOTE | 2016-12-05 06:46 | NUR ---
Patient slept comfortably throughout the night. No c/o pain and discomfort. No acute distress. Remains on contact isolation for MRSA nares. All contact precautions taken by staff. All needs attended to promptly. Call light within reach. Will continue to monitor.
[2016-12-05 07:10] VITALS: BP 95/55
--- NOTE | 2016-12-05 07:48 | NUR ---
Pt is in no acute distress. Pt alert and oriented x 1. Reorientation to time and place non effective pt unable to retain informations. Pt does follow simple instructions. Plan of care place re: promote self independence, encouraged being continent by frequent reminders and offer to the bathroom, and implement fall precautions. Call light is within reach. Pt oob in chair for breakfast.
[2016-12-05] MEDS: DIVALPROEX SPRINKLE 125 MG CAP.SPRINK PO SCH ×2 (08:50→17:06)
[2016-12-05] MEDS: DOCUSATE SODIUM 100 MG CAPSULE PO SCH (08:50)
[2016-12-05] MEDS: MEMANTINE HCL 10 MG TABLET PO SCH ×2 (08:50→17:06)
[2016-12-05] MEDS: LISINOPRIL 20 MG TABLET PO SCH (08:50)
[2016-12-05] MEDS: Z GUARD REMEDY PASTE 57 GM TUBE TOP SCH ×2 (08:51→20:54)
[2016-12-05] MEDS: MEGESTROL ACETATE 20 MG TABLET PO SCH ×2 (08:52→17:06)
[2016-12-05] MEDS: BOOST GLUCOSE CONTROL 237 ML LIQUID (CHOCOLATE) PO SCH ×2 (08:56→17:07)
--- NOTE | 2016-12-05 18:30 | NUR ---
Pt tolerated rehab program today without any complications. Pt remains to have poor appetite even with megace. Plan of care effective. No fall noted this shift. Witnessed pt feeding her self. Call light is within reach.
--- NOTE | 2016-12-05 19:30 | NUR ---
Pt received in bed, awake with eyes closed. A/Ox1. Pt v/s stable. In no acute distress. No c/o pain at this time. MRSA nares results negative. Will notify MD. Contact isolation remains in place. Safety measures implemented. Call light within reach. Will continue to monitor.
[2016-12-05 20:12] VITALS: BP 130/75
[2016-12-05] MEDS: MIRTAZAPINE 15 MG TABLET PO SCH (20:53)
[2016-12-05] MEDS: ATORVASTATIN 10 MG TABLET PO SCH (20:53)
[2016-12-05] MEDS: DONEPEZIL 10 MG TABLET PO SCH (20:53)
--- NOTE | 2016-12-06 06:21 | NUR ---
END OF SHIFT NOTES. PT SLEPT WELL THROUGHOUT SHIFT. IN STABLE CONDITION. TOLERATED MEDICATIONS WELL. NEEDS ATTENDED. SAFETY MAINTAINED. CALL LIGHT WITHIN REACH.
[2016-12-06 07:00] VITALS: BP 107/61
--- NOTE | 2016-12-06 07:56 | NUR ---
Pt is in no acute distress. Call light is within reach. No fall noted this shift. Pt tolerated rehab program sessions today without any complications. Witnessed pt feeding herself with set up and was able to go to bathroom without being incontinent. Addendum: 12/07/16 at 0801 by ESSIE ANTOINE RN Wrong time
--- NOTE | 2016-12-06 08:00 | NUR ---
Pt more awake today and responsive. Pt talking more and discuss current events with me. Reoriented pt to time and place - pt has poor memory and unable to retain informations. Plan of care implemented for today re: fall precaution, self indepence, and promote continence by freequent offers to the bathroom. Pt denies any co pain. Call light is within reach.
[2016-12-06] MEDS: MEMANTINE HCL 10 MG TABLET PO SCH ×2 (08:18→17:19)
[2016-12-06] MEDS: DOCUSATE SODIUM 100 MG CAPSULE PO SCH (08:18)
[2016-12-06] MEDS: DIVALPROEX SPRINKLE 125 MG CAP.SPRINK PO SCH ×2 (08:18→17:19)
[2016-12-06] MEDS: LISINOPRIL 20 MG TABLET PO SCH (08:19)
[2016-12-06] MEDS: MEGESTROL ACETATE 20 MG TABLET PO SCH ×2 (08:19→17:22)
[2016-12-06] MEDS: Z GUARD REMEDY PASTE 57 GM TUBE TOP SCH ×2 (08:20→20:59)
[2016-12-06] MEDS: BOOST GLUCOSE CONTROL 237 ML LIQUID (CHOCOLATE) PO SCH ×2 (08:28→17:22)
--- NOTE | 2016-12-06 18:00 | NUR ---
Pt is in no acute distress. Call light is within reach. No fall noted this shift. Pt tolerated rehab program sessions today without any complications. Witnessed pt feeding herself with set up and was able to go to bathroom without being incontinent.
--- NOTE | 2016-12-06 19:30 | NUR ---
Report received. Patient in bed, appears weak and passive. Speech clear, oriented to name only. NAD noted. Addendum: 12/07/16 at 0340 by DIANA GREY RN Amended: Links added.
[2016-12-06 20:22] VITALS: BP 105/62
[2016-12-06] MEDS: MIRTAZAPINE 15 MG TABLET PO SCH (20:58)
[2016-12-06] MEDS: DONEPEZIL 10 MG TABLET PO SCH (20:58)
[2016-12-06] MEDS: ATORVASTATIN 10 MG TABLET PO SCH (20:58)
--- NOTE | 2016-12-06 21:00 | NUR ---
PO medications crushed and given with pudding. Intake encouraged. No swallowing difficulty but only take small few bites. Addendum: 12/07/16 at 0348 by DIANA GREY RN Amended: Links added.
[2016-12-07 06:19] LABS: HEMATOCRIT 35.8 % (37-47); HEMOGLOBIN 11.8 G/DL (12.0-16.0)
--- NOTE | 2016-12-07 07:05 | NUR ---
Slept fairly well during the night. Report given to Elliott RN.
[2016-12-07] MEDS: MEGESTROL ACETATE 20 MG TABLET PO SCH ×2 (08:08→16:26)
[2016-12-07] MEDS: DIVALPROEX SPRINKLE 125 MG CAP.SPRINK PO SCH ×2 (08:08→16:26)
[2016-12-07] MEDS: LISINOPRIL 20 MG TABLET PO SCH (08:08)
[2016-12-07] MEDS: MEMANTINE HCL 10 MG TABLET PO SCH ×2 (08:08→16:26)
[2016-12-07] MEDS: Z GUARD REMEDY PASTE 57 GM TUBE TOP SCH ×2 (08:09→20:38)
[2016-12-07] MEDS: BOOST GLUCOSE CONTROL 237 ML LIQUID (CHOCOLATE) PO SCH ×2 (08:18→16:26)
[2016-12-07 08:23] VITALS: BP 117/59
[2016-12-07] MEDS: DOCUSATE SODIUM 100 MG CAPSULE PO SCH (11:28)
--- NOTE | 2016-12-07 14:12 | NUR ---
Rehab Team Conference 12/07/16
--- NOTE | 2016-12-07 18:30 | NUR ---
PT is in no acute distress. Pt tolerated rehab program today. Witnessed pt going to bathroom with TEACHER'S AIDE and urinated in toiled. PT had good appetite today see foreign law consultant notes.
[2016-12-07 19:54] VITALS: BP 106/68
--- NOTE | 2016-12-07 20:00 | NUR ---
RECEIVED PATIENT AWAKE IN BED, WATCHING TV. PATIENT IS ALERT TO SELF ONLY. CONFUSED AND DISORIENTED, BUT FOLLOWS SIMPLE DIRECTIONS WELL. NEEDS REINFORCEMENT AT TIMES. DENIES PAIN WHEN ASKED. NO S/S OF PAIN OR DISCOMFORT. NO FACIAL GRIMACE NOTED. VSS. NO RESP. DISTRESS NOTED. BED ALARM ON. CALL LIGHT IN REACH. PROVIDED SAFE AND THERAPEUTIC ENVIRONMENT. ALL NEEDS ATTENDED. WILL CONTINUE TO MONITOR.
[2016-12-07] MEDS: DONEPEZIL 10 MG TABLET PO SCH (20:36)
[2016-12-07] MEDS: ATORVASTATIN 10 MG TABLET PO SCH (20:37)
[2016-12-07] MEDS: MIRTAZAPINE 15 MG TABLET PO SCH (20:37)
--- NOTE | 2016-12-07 21:30 | NUR ---
REDNESS NOTED TO SACRAL AREA, DIMINISHED. SLIGHT NON-BLANCHING PINK NOTED. PICTURES TAKEN AND PLACED IN CHART.
--- NOTE | 2016-12-08 06:09 | NUR ---
PATIENT ASLEEP IN BED. EASILY AROUSABLE. SLEPT WELL THROUGHOUT THE NIGHT. BED ALARM ON. CALL LIGHT IN REACH. ALL NEEDS ATTENDED. WILL CONTINUE TO MONITOR.
[2016-12-08] MEDS: DIVALPROEX SPRINKLE 125 MG CAP.SPRINK PO SCH ×2 (08:11→17:01)
[2016-12-08] MEDS: BOOST GLUCOSE CONTROL 237 ML LIQUID (CHOCOLATE) PO SCH ×2 (08:11→17:06)
[2016-12-08] MEDS: DOCUSATE SODIUM 100 MG CAPSULE PO SCH (08:11)
[2016-12-08] MEDS: MEMANTINE HCL 10 MG TABLET PO SCH ×2 (08:11→17:01)
[2016-12-08] MEDS: MEGESTROL ACETATE 20 MG TABLET PO SCH ×2 (08:22→17:02)
[2016-12-08] MEDS: LISINOPRIL 20 MG TABLET PO SCH (08:22)
[2016-12-08] MEDS: Z GUARD REMEDY PASTE 57 GM TUBE TOP SCH ×2 (08:23→21:04)
[2016-12-08 08:31] VITALS: BP 107/85
--- NOTE | 2016-12-08 09:00 | NUR ---
pt not given bp meds due to decreased blood pressure. bp at 107/56 hr 73. pt asymptomatic. no signs of dizziness. will reassess pt for complications.
[2016-12-08 20:08] VITALS: BP 128/75
[2016-12-08] MEDS: ATORVASTATIN 10 MG TABLET PO SCH (20:58)
[2016-12-08] MEDS: DONEPEZIL 10 MG TABLET PO SCH (20:58)
[2016-12-08] MEDS: MIRTAZAPINE 15 MG TABLET PO SCH (20:59)
--- NOTE | 2016-12-08 22:00 | NUR ---
Easily awakens and goes right back to sleep,no distress noted or voiced
--- NOTE | 2016-12-09 05:39 | NUR ---
Slept most of the night got up twice to go to br,disimpacted some stool.Turned every 2 hrs.
[2016-12-09 08:00] VITALS: BP 115/61
[2016-12-09] MEDS: BOOST GLUCOSE CONTROL 237 ML LIQUID (CHOCOLATE) PO SCH ×2 (08:10→17:20)
[2016-12-09] MEDS: Z GUARD REMEDY PASTE 57 GM TUBE TOP SCH ×2 (09:00→20:35)
[2016-12-09] MEDS: LISINOPRIL 20 MG TABLET PO SCH (10:02)
[2016-12-09] MEDS: DIVALPROEX SPRINKLE 125 MG CAP.SPRINK PO SCH ×2 (10:02→17:18)
[2016-12-09] MEDS: MEMANTINE HCL 10 MG TABLET PO SCH ×2 (10:03→17:18)
[2016-12-09] MEDS: DOCUSATE SODIUM 100 MG CAPSULE PO SCH (10:03)
[2016-12-09] MEDS: MEGESTROL ACETATE 20 MG TABLET PO SCH ×2 (10:03→17:18)
[2016-12-09] MEDS: DONEPEZIL 10 MG TABLET PO SCH (20:31)
[2016-12-09] MEDS: ATORVASTATIN 10 MG TABLET PO SCH (20:32)
[2016-12-09] MEDS: MIRTAZAPINE 15 MG TABLET PO SCH (20:32)
[2016-12-09 20:52] VITALS: BP 98/58
--- NOTE | 2016-12-10 07:10 | NUR ---
RECEIVED REPORT FROM SHADER AND TONER NURSE, PATIENT IN BED SLEEPING, NO EVIDENCE OF DISTRESS NOTED, BED IN LOW POSITION, SIDE RAILS UP X2.
[2016-12-10] MEDS: BOOST GLUCOSE CONTROL 237 ML LIQUID (CHOCOLATE) PO SCH ×2 (08:45→17:17)
[2016-12-10 08:49] VITALS: BP 92/50
[2016-12-10] MEDS: LISINOPRIL 20 MG TABLET PO SCH ×2 (09:00→09:11)
[2016-12-10] MEDS: MEGESTROL ACETATE 20 MG TABLET PO SCH ×2 (09:09→17:17)
[2016-12-10] MEDS: MEMANTINE HCL 10 MG TABLET PO SCH ×2 (09:09→17:16)
[2016-12-10] MEDS: DOCUSATE SODIUM 100 MG CAPSULE PO SCH (09:09)
[2016-12-10] MEDS: DIVALPROEX SPRINKLE 125 MG CAP.SPRINK PO SCH ×2 (09:09→17:17)
[2016-12-10] MEDS: Z GUARD REMEDY PASTE 57 GM TUBE TOP SCH ×2 (09:11→20:22)
--- NOTE | 2016-12-10 15:00 | NUR ---
PATIENT HAS NOT HAD A WET DIAPER OR URINATED. CALLED [facility] AND ORDERS FROM DR RHODES RECEIVED TO STRAIGHT CATH PRN 8 HOURS AND MONITOR I/O.
--- NOTE | 2016-12-10 18:42 | NUR ---
PATIENT HAS NOT EATEN MUCH OF HER MEALS, AND APPEARS TO BE CHEEKING MEDICATION. PATIENT HAD 500CC OF OUTPUT OF URINE WHEN SHE WAS CATHETERIZED. BED IS IN LOW POSITION, SIDE RAILS UP X2.
[2016-12-10] MEDS: MIRTAZAPINE 15 MG TABLET PO SCH (20:20)
[2016-12-10] MEDS: DONEPEZIL 10 MG TABLET PO SCH (20:20)
[2016-12-10] MEDS: ATORVASTATIN 10 MG TABLET PO SCH (20:21)
[2016-12-10 20:55] VITALS: BP 106/57
--- NOTE | 2016-12-11 05:29 | NUR ---
AWAKE AT BEGINNING OF THE SHIFT. AAOX1 CONFUSED AND DISORIENTED. FLAT AFFECT. TOLERATED PO MEDS WELL. OOB TO THE BR VIA WHEELCHAIR. VOIDED 200 CCDENIES ANY PAIN NOR ANY DISCOMFORT.CLEAR YELLOW URINE. NO ACUTE DISTRESS NOTED. REPOSITIONED FOR COMFORT. NEEDS ATTENDED. WILL MONITOR PATIENT.
--- NOTE | 2016-12-11 07:20 | NUR ---
RECEIVED REPORT FROM CLEARANCE REP NURSE, PATIENT IN BED AWAKE, SCD'S WERE OFF, APPLIED SCD'S. PATIENT HAD MINIMAL GUARDING IN LEGS WHEN PLACING SCD'S. BED IN LOW POSITION, SIDE RAILS UP X2. PRIMARILY FLAT AFFECT.
[2016-12-11 08:00] VITALS: BP 111/67
[2016-12-11] MEDS: BOOST GLUCOSE CONTROL 237 ML LIQUID (CHOCOLATE) PO SCH ×2 (08:17→16:56)
[2016-12-11] MEDS: DOCUSATE SODIUM 100 MG CAPSULE PO SCH (08:56)
[2016-12-11] MEDS: LISINOPRIL 20 MG TABLET PO SCH (08:56)
[2016-12-11] MEDS: MEMANTINE HCL 10 MG TABLET PO SCH ×2 (08:56→16:57)
[2016-12-11] MEDS: DIVALPROEX SPRINKLE 125 MG CAP.SPRINK PO SCH ×2 (08:56→16:57)
[2016-12-11] MEDS: MEGESTROL ACETATE 20 MG TABLET PO SCH ×2 (08:56→16:57)
[2016-12-11] MEDS: Z GUARD REMEDY PASTE 57 GM TUBE TOP SCH ×2 (09:06→21:40)
--- NOTE | 2016-12-11 14:30 | NUR ---
CPM applied, patient continued to ask about seeing an expert to evaluate if it is on correctly. Addendum: 12/11/16 at 1726 by GLADYS COLLINS RN wrong patient chart opened for this note, this note is not relevant to this patient
--- NOTE | 2016-12-11 17:38 | NUR ---
Patient has had improved appetite today. Patient is participating in socializing with room mate. No evidence of distress noted today, bed in low position, side rails up x2, bed alarm on.
--- NOTE | 2016-12-11 18:30 | NUR ---
PATIENT ATTEMPTED TO HAVE A BOWEL MOVEMENT BUT IT WAS IMPACTED IN A LARGE MASS AND COULD NOT BE EXPELLED. PATIENT WAS DISEMPACTED USING GENTLE LUBRICATION AND DIGITAL EXTRACTION. PATIENT TOLERATED WELL.
[2016-12-11] MEDS: MIRTAZAPINE 15 MG TABLET PO SCH (20:37)
[2016-12-11] MEDS: DONEPEZIL 10 MG TABLET PO SCH (20:37)
[2016-12-11] MEDS: ATORVASTATIN 10 MG TABLET PO SCH (20:37)
[2016-12-11 21:52] VITALS: BP 104/44
--- NOTE | 2016-12-12 05:55 | NUR ---
QUIET NIGHT. NO SIGNS OF AGITATION NOR ANY RESTLESSNESS. INCONTINENT OF URINE. KEPT CLEAN AND DRY FALL PRECAUTIONS MAINTAINED. NEEDS ATTENDED. TOOK PO MEDS WITHOUT ANY DIFFICULTY. KEPT COMFORTABLE. ENCOURAGE PO FLUIDS. NO ACUTE DISTRESS NOTED.
--- NOTE | 2016-12-12 07:30 | NUR ---
on bed,resting well. denies discomfort. set up for breakfast, noted better appetite and opening mouth more than before. patient awareof progress and glad of discussion.
[2016-12-12 08:00] VITALS: BP 131/54
[2016-12-12] MEDS: LISINOPRIL 20 MG TABLET PO SCH (09:00)
[2016-12-12] MEDS: MEMANTINE HCL 10 MG TABLET PO SCH ×2 (09:21→17:01)
[2016-12-12] MEDS: DIVALPROEX SPRINKLE 125 MG CAP.SPRINK PO SCH ×2 (09:21→17:02)
[2016-12-12] MEDS: DOCUSATE SODIUM 100 MG CAPSULE PO SCH (09:22)
[2016-12-12] MEDS: MEGESTROL ACETATE 20 MG TABLET PO SCH ×2 (09:22→17:02)
[2016-12-12] MEDS: Z GUARD REMEDY PASTE 57 GM TUBE TOP SCH ×2 (09:27→20:35)
[2016-12-12] MEDS: BOOST GLUCOSE CONTROL 237 ML LIQUID (CHOCOLATE) PO SCH ×2 (09:30→17:03)
--- NOTE | 2016-12-12 13:00 | NUR ---
appetite fair, set for lunch and able to feed self slowly.
--- NOTE | 2016-12-12 15:26 | NUR ---
sleping on and off, watching tv prn. denies distress.
--- NOTE | 2016-12-12 15:28 | NUR ---
daughter at bedside, supportive of patient care. concerns discussed with patient, appreciative and thankful of care and service. Addendum: 12/12/16 at 1532 by KATHY JIMENEZ RN cancel note for 1531, computer skip when charting, not for this patient.
--- NOTE | 2016-12-12 19:18 | NUR ---
resting well. denies discomfort, calm
--- NOTE | 2016-12-12 20:00 | NUR ---
Received pt on bed awake, and alert with episodes of confusion. No acute distress noted. No complaints of pain or discomfort. Breathing even and unlabored with normal respirations. Call light within reach. Fall precautions observed. Vital signs stable. will continue to monitor.
[2016-12-12] MEDS: MIRTAZAPINE 15 MG TABLET PO SCH (20:32)
[2016-12-12] MEDS: DONEPEZIL 10 MG TABLET PO SCH (20:32)
[2016-12-12] MEDS: ATORVASTATIN 10 MG TABLET PO SCH (20:32)
[2016-12-12 20:59] VITALS: BP 126/71
--- NOTE | 2016-12-13 06:36 | NUR ---
Patient slept well throughout the shift. Remains free from injury. No complaints of pain or discomfort. calm and cooperative to care. Bed alarm on. Frequently checked for safety. Kept clean, dry and comfortable. Call light within reach. All needs attended.
--- NOTE | 2016-12-13 07:50 | NUR ---
Sleeping, comfortable. Bed alarm on
[2016-12-13 08:16] VITALS: BP 95/59
[2016-12-13] MEDS: LISINOPRIL 20 MG TABLET PO SCH (09:00)
[2016-12-13] MEDS: DIVALPROEX SPRINKLE 125 MG CAP.SPRINK PO SCH ×2 (09:02→17:36)
[2016-12-13] MEDS: MEMANTINE HCL 10 MG TABLET PO SCH ×2 (09:02→17:36)
[2016-12-13] MEDS: MEGESTROL ACETATE 20 MG TABLET PO SCH ×2 (09:02→17:36)
[2016-12-13] MEDS: DOCUSATE SODIUM 100 MG CAPSULE PO SCH (09:08)
[2016-12-13] MEDS: Z GUARD REMEDY PASTE 57 GM TUBE TOP SCH ×2 (09:08→21:23)
[2016-12-13] MEDS: BOOST GLUCOSE CONTROL 237 ML LIQUID (CHOCOLATE) PO SCH ×2 (09:09→17:37)
--- NOTE | 2016-12-13 13:00 | NUR ---
Family at bedside. DC plan discussed by CM
[2016-12-13 16:29] VITALS: BP 119/59
--- NOTE | 2016-12-13 18:02 | NUR ---
Assisted to the bathroom and back to bed. Ate dinner fairly. Repositioned in bed comfortably. Bed alarm on.
--- NOTE | 2016-12-13 20:00 | NUR ---
Patient alert to self, with episodes of confusion. No acute distress noted. Denies pain. resting comfortably in bed. All due meds given as ordered and well tolerated. Food and fluids offered and taken well. Kept clean, dry and comfortable. Call light within reach. All needs attended
[2016-12-13 20:11] VITALS: BP 119/66
[2016-12-13] MEDS: ATORVASTATIN 10 MG TABLET PO SCH (21:16)
[2016-12-13] MEDS: DONEPEZIL 10 MG TABLET PO SCH (21:16)
[2016-12-13] MEDS: MIRTAZAPINE 15 MG TABLET PO SCH (21:16)
--- NOTE | 2016-12-14 06:47 | NUR ---
Patient slept well throughout the shift. No acute distress noted. Ambulated to the bathroom using a walker with 1 person assist. No signs of distress was noted. Remains free from fall/injury. Kept clean, dry and comfortable. Bed alarm on. Bed in lowest position. Call light within reach. All needs attended.
[2016-12-14 08:39] VITALS: BP 103/58
[2016-12-14] MEDS: MEMANTINE HCL 10 MG TABLET PO SCH ×2 (09:21→17:02)
[2016-12-14] MEDS: DOCUSATE SODIUM 100 MG CAPSULE PO SCH (09:21)
[2016-12-14] MEDS: MEGESTROL ACETATE 20 MG TABLET PO SCH ×2 (09:21→17:02)
[2016-12-14] MEDS: DIVALPROEX SPRINKLE 125 MG CAP.SPRINK PO SCH ×2 (09:21→17:02)
[2016-12-14] MEDS: Z GUARD REMEDY PASTE 57 GM TUBE TOP SCH ×2 (09:24→20:53)
[2016-12-14] MEDS: LISINOPRIL 20 MG TABLET PO SCH (09:24)
[2016-12-14] MEDS: BOOST GLUCOSE CONTROL 237 ML LIQUID (CHOCOLATE) PO SCH ×2 (09:25→17:03)
--- NOTE | 2016-12-14 19:34 | NUR ---
PENDING TRANSFER NO BED AVAILABLE .
[2016-12-14 20:00] VITALS: BP 103/47
--- NOTE | 2016-12-14 20:00 | NUR ---
Received patient sitting on wheelchair. Alert but with episodes of confusion. No acute distress noted. Breathing even and unlabored with normal respirations. Call light within reach. All needs attended.
[2016-12-14] MEDS: ATORVASTATIN 10 MG TABLET PO SCH (20:51)
[2016-12-14] MEDS: DONEPEZIL 10 MG TABLET PO SCH (20:52)
[2016-12-14] MEDS: MIRTAZAPINE 15 MG TABLET PO SCH (20:52)
--- NOTE | 2016-12-15 05:34 | NUR ---
Patient slept comfortably throughout the night. remains free from injuires/fall. No apparent distress. Incontinent care provided. fall precautions observed. All needs attended.
[2016-12-15] MEDS: DOCUSATE SODIUM 100 MG CAPSULE PO SCH (08:08)
[2016-12-15] MEDS: DIVALPROEX SPRINKLE 125 MG CAP.SPRINK PO SCH (08:08)
[2016-12-15] MEDS: MEMANTINE HCL 10 MG TABLET PO SCH (08:08)
[2016-12-15] MEDS: BOOST GLUCOSE CONTROL 237 ML LIQUID (CHOCOLATE) PO SCH (08:09)
[2016-12-15] MEDS: Z GUARD REMEDY PASTE 57 GM TUBE TOP SCH (08:09)
[2016-12-15] MEDS: MEGESTROL ACETATE 20 MG TABLET PO SCH (08:11)
[2016-12-15 08:12] VITALS: BP 99/56
[2016-12-15 08:20] VITALS: BP 84/53
[2016-12-15 08:30] VITALS: BP 77/48
--- NOTE | 2016-12-15 08:30 | NUR ---
PT'S SBP IS LOW 88/47 ON THE RIGHT ARM. RECHECKED SBP ON THE LEFT ARM. STILL LOW 77/43. PT ASYMPTOMATIC BUT FEELING GENERALLY WEAK AND SLEEPY. SKIN IS WARM TO TOUCH. PLACED HOB FLAT IN BED. RESPONSIVE AND ALERT.
[2016-12-15] MEDS: LISINOPRIL 20 MG TABLET PO SCH (08:35)
[2016-12-15] MEDS ORDERED: IV D5/ 0.9% NACL 1,000 ML IV SCH ×2 (08:58→09:15)
--- NOTE | 2016-12-15 09:15 | NUR ---
CALLED AND NOTIFIED RONALDO MERINO. HE IS COVERING THE GROUP FOR THIS MORNING WITH A NEW ORDER TO START AN IVF D5NS 1L BOLUS.
[2016-12-15 09:20] VITALS: BP 102/58
--- NOTE | 2016-12-15 09:25 | NUR ---
PT IS CONSTIPATED AND UNABLE TO EXPELL. MINIMAL MANUAL DISIMPACTION DONE AND EXPELLED LARGE AMOUNT OF HARD STOOL. PT FELT A LOT BETTER.
--- NOTE | 2016-12-15 09:40 | NUR ---
STARTED IV ACCESS ON THE RIGHT UPPER AV G20. AND START THE BOLUS INFUSION ORDERED.
--- NOTE | 2016-12-15 14:50 | NUR ---
DR BRANCH CALLED AND ORDERED TO TRANSTER PT TO [facility]. BLOOD DRAWN ORDERED. AND URINE SPECIMEN OBTAINED AND SENT.
[2016-12-15 15:21] LABS: CARBON DIOXIDE 27 mmol/L (21-32); CHLORIDE 108 mmol/L (98-107); CREATININE 0.9 mg/dL (0.6-1.3); GLUCOSE 116 mg/dL (74-106); POTASSIUM 3.7 mmol/L (3.5-5.1); UREA NITROGEN, BLOOD 20 mg/dL (7-18)
[2016-12-15 15:22] LABS: HEMATOCRIT 33.2 % (37-47); HEMOGLOBIN 11.2 G/DL (12.0-16.0); MEAN CORPUSCULAR HEMOGLOBIN 31.8 UUG (27.0-31.0); MEAN CORPUSCULAR HGB CONC 34 g/dL (32.0-37.0); MEAN CORPUSCULAR VOLUME 94.1 FL (81.0-99.0); PLATELET COUNT (AUTO) 288 K/UL (150-450); RED BLOOD CELL COUNT(AUTO) 3.53 MIL/UL (4.2-5.4); WHITE BLOOD COUNT (AUTO) 7.1 K/UL (4.0-11.2)
[2016-12-15 15:27] LABS: ALANINE AMINOTRANSFERASE 18 U/L (14-59); ALKALINE PHOSPHATASE 37 U/L (50-136); ASPARTATE AMINOTRANSFERASE 13 U/L (15-37); BILIRUBIN,TOTAL 0.3 mg/dL (0.2-1.0); MAGNESIUM 2.2 mg/dL (1.8-2.4); PHOSPHOROUS 3.5 mg/dL (2.5-4.9); TOTAL PROTEIN, SERUM 6.3 g/dL (6.4-8.2)
--- NOTE | 2016-12-15 16:50 | NUR ---
PT IS TRANSFERRED TO [facility] VIA BED. REPORT GIVEN TO ANA SENIOR BY JEOVANY SENIOR. PT'S SON WAS CALLED AND INFORMED OF THE TRANSFER.
[2016-12-15 16:53] LABS: BAND % (MANUAL) 4 % (0-10); EOSINOPHILS % (MANUAL) 3 % (0-8); LYMPHOCYTES % (MANUAL) 47 % (20-40); MONOCYTES % (MANUAL) 5 % (2-10); NEUTROPHILS % (MANUAL) 41 % (42-75)
[2016-12-15 17:05] LABS: *BILIRUBIN,URIN NEGATIVE (NEGATIVE); *BLOOD, URINE NEGATIVE (NEGATIVE); *CLARITY,URINE SLIGHTLY CLOUDY (CLEAR); *COLOR,URINE YELLOW (YELLOW); *KETONES,URINE NEGATIVE (NEGATIVE); *PROTEIN,URINE NEGATIVE (NEGATIVE); *UROBILINOGEN,URINE 0.2 E.U./dl (NORMAL); LEUKOCYTE ESTERASE ,URINE 1+ (NEGATIVE); NITRITE, URINE NEGATIVE (NEGATIVE); UGLUCOSE NEGATIVE (NEGATIVE)
[2016-12-15 17:44] LABS: BACTERIA,URINE MODERATE /HPF (NONE SEEN); MUCUS,URINE MODERATE /LPF (0-FEW); SQUAMOUS EPITHELIAL CELL,UR FEW /HPF (NONE SEEN)
== END 2016-12-15 16:40 | disposition short-term general hospital (02) | DRG 947 ==
PROVIDERS: ADMIT Physical Medicine & Rehabilitation Pain Medicine; ATTEND Physical Medicine & Rehabilitation Pain Medicine
DX: R53.81 Other malaise (principal); G93.41 Metabolic encephalopathy; E46 Unspecified protein-calorie malnutrition; G20 Parkinson's disease; Z68.1 Body mass index [BMI] 19.9 or less, adult; G30.9 Alzheimer's disease, unspecified; F02.80 Dementia in other diseases classified elsewhere, unspecified severity, without behavioral disturbance, psychotic disturbance, mood disturbance, and anxiety; G40.909 Epilepsy, unspecified, not intractable, without status epilepticus; R63.0 Anorexia; E78.5 Hyperlipidemia, unspecified; R41.82 Altered mental status, unspecified; R26.9 Unspecified abnormalities of gait and mobility; R53.1 Weakness; R63.4 Abnormal weight loss; I10 Essential (primary) hypertension; F32.9 Major depressive disorder, single episode, unspecified; Z88.0 Allergy status to penicillin; Z88.2 Allergy status to sulfonamides; Z88.8 Allergy status to other drugs, medicaments and biological substances
CPT/HCPCS: 36415; 70030-TC; 70450; 80164; 83735; 84100; 84443; 85018; 85025; 92523; 92610; 97110; 97112; 97116; 97165; 97530; 97535; A4663; C1758; J7042

== ENCOUNTER 2016-12-15 17:40 | Inpatient (IN) | payer MEDICARE, OTHER ==
[~2016-12-15] VITALS: Ht 157.5 cm; Wt 54.4 kg
[2016-12-15 15:30] VITALS: BP 100/52
[2016-12-15 20:00] VITALS: BP 100/43
[2016-12-16 05:10] VITALS: BP 115/49
[2016-12-16 10:43] VITALS: BP 128/65
[2016-12-16 15:32] VITALS: BP 92/52
[2016-12-16 19:38] LABS: BASOPHILS % (AUTO) 0.6 % (0.0-2.0); EOSINOPHILS # (AUTO) 0.2 K/uL (0.0-0.7); EOSINOPHILS % (AUTO) 2.4 % (0.0-7.0); HEMATOCRIT 31.8 % (37-47); HEMOGLOBIN 10.3 G/DL (12.0-16.0); LYMPHOCYTES # (AUTO) 3.2 K/UL (0.8-4.8); LYMPHOCYTES % (AUTO) 42.9 % (20.5-51.5); MEAN CORPUSCULAR HEMOGLOBIN 30.8 UUG (27.0-31.0); MEAN CORPUSCULAR HGB CONC 32 g/dL (32.0-37.0); MEAN CORPUSCULAR VOLUME 95.5 FL (81.0-99.0); MONOCYTES # (AUTO) 0.7 K/UL (0.1-1.30); MONOCYTES % (AUTO) 8.8 % (0.0-11.0); NEUTROPHILS # (AUTO) 3.4 K/UL (1.8-8.9); NEUTROPHILS % (AUTO) 45.3 % (38.5-71.5); PLATELET COUNT (AUTO) 263 K/UL (150-450); RED BLOOD CELL COUNT(AUTO) 3.33 MIL/UL (4.2-5.4); WHITE BLOOD COUNT (AUTO) 7.5 K/UL (4.0-11.2)
[2016-12-16 19:53] LABS: ALANINE AMINOTRANSFERASE 16 U/L (14-59); ALKALINE PHOSPHATASE 39 U/L (50-136); ASPARTATE AMINOTRANSFERASE 12 U/L (15-37); BILIRUBIN,TOTAL 0.2 mg/dL (0.2-1.0); CARBON DIOXIDE 26 mmol/L (21-32); CHLORIDE 106 mmol/L (98-107); CREATININE 0.6 mg/dL (0.6-1.3); GLUCOSE 120 mg/dL (74-106); TOTAL PROTEIN, SERUM 6.1 g/dL (6.4-8.2); UREA NITROGEN, BLOOD 17 mg/dL (7-18)
[2016-12-16 20:00] VITALS: BP 128/68
[2016-12-17 04:29] VITALS: BP 117/73
[2016-12-17 11:01] VITALS: BP 126/64
[2016-12-17 15:18] VITALS: BP 130/65
[2016-12-17 20:48] VITALS: BP 94/56
[2016-12-18 04:00] VITALS: BP 103/53
[2016-12-18 11:24] VITALS: BP 98/56
[2016-12-18 15:34] VITALS: BP 124/75
[2016-12-18 20:15] VITALS: BP 102/60
[2016-12-19 06:52] VITALS: BP 110/75
[2016-12-19 11:42] VITALS: BP 112/57
== END 2016-12-19 15:27 | DRG 641 ==
LOC: MED 17:40
PROVIDERS: ADMIT Internal Medicine; ATTEND Internal Medicine
DX: E86.9 Volume depletion, unspecified (principal); G20 Parkinson's disease; I95.9 Hypotension, unspecified; F02.80 Dementia in other diseases classified elsewhere, unspecified severity, without behavioral disturbance, psychotic disturbance, mood disturbance, and anxiety; D64.9 Anemia, unspecified; Z88.0 Allergy status to penicillin; Z88.2 Allergy status to sulfonamides; Z88.8 Allergy status to other drugs, medicaments and biological substances; E78.5 Hyperlipidemia, unspecified; I10 Essential (primary) hypertension; Z79.899 Other long term (current) drug therapy; R53.1 Weakness; Z74.09 Other reduced mobility; R63.4 Abnormal weight loss; Z68.21 Body mass index [BMI] 21.0-21.9, adult; R62.7 Adult failure to thrive
CPT/HCPCS: 36415; 85025; 87086; 97116; 97530; A4663; J7042